=== PATIENT | female | born 1995 | race Caucasian/White ===

== ENCOUNTER 2017-07-03 08:51 | Inpatient (IN) | payer BC, OTHER ==
[2017-07-06] MEDS ORDERED: METHYLERGONOVINE 0.2 MG/ML 1 ML AMP IM PRN (07:17)
[2017-07-06] MEDS ORDERED: TERBUTALINE 1 MG/ML VIAL SQ PRN (07:17)
[2017-07-06] MEDS ORDERED: OXYTOCIN 10 UNIT/ML 1 ML VIAL IM PRN (07:17)
[2017-07-06] MEDS ORDERED: LIDOCAINE 1% (PF) 10 MG/ML (30 ML SDV) SQ PRN (07:17)
[2017-07-06] MEDS ORDERED: CARBOPROST TROMETHAMINE 250 MCG/ML 1 ML AMP IM PRN (07:17)
[2017-07-06 07:39] LABS: Basophils % (A) 0 %; Eosinophils # (A) 0.1 k/uL (0-0.7); Eosinophils % (A) 1 %; HCT 34.7 % (34.0-46.0); HDW 3.06; HGB 11.1 gm/dL (11.4-16.0); Luc # (Auto) 0.32; Luc % (Auto) 3; Lymphocytes # (A) 2.3 k/uL (1.0-4.8); Lymphocytes % (A) 20 %; MCH 27.4 pg (25.0-35.0); MCHC 32.1 g/dL (31.0-37.0); MCV 85.3 fL (80.0-100.0); Mean Platelet Volume 7.9; Monocytes # (A) 0.8 k/uL (0-1.0); Monocytes % (A) 7 %; Neutrophils # (A) 7.8 k/uL (1.3-7.7); Neutrophils % (A) 69 %; RBC 4.07 m/uL (3.80-5.40); RDW 13.5 % (11.5-15.5); WBC 11.3 k/uL (4.0-11.0); WBC (Perox) 11.13
[2017-07-06] MEDS ORDERED: CITRIC ACID-SODIUM CITRATE 15 ML CUP PO ONE (07:40)
[2017-07-06] MEDS ORDERED: ceFAZolin IN SWFI 2 GM/20 ML SYRINGE IVP ONE (07:40)
[2017-07-06] MEDS: LACTATED RINGERS 1,000 ML IV SCH ×5 (07:58→21:46)
[2017-07-06] MEDS: OXYTOCIN 20 UNITS/1000 ML NS 1,000 ML IV SCH (07:59)
[2017-07-06 08:28] VITALS: BMI 29.5
[2017-07-06] MEDS ORDERED: OXYTOCIN 10 UNIT/ML 1 ML VIAL ONE (10:05)
[2017-07-06] MEDS ORDERED: LACTATED RINGERS 1,000 ML BAG IV ONE (10:05)
[2017-07-06] MEDS ORDERED: NALBUPHINE 10 MG/ML AMPUL ONE (10:05)
[2017-07-06] MEDS ORDERED: ePHEDrine SULFATE/0.9% NACL/PF 50 MG/5 ML SYRINGE IV ONE (10:05)
[2017-07-06] MEDS ORDERED: MORPHINE SULFATE (PF) 0.3 MG/0.3 ML SYR ONE (10:05)
[2017-07-06] MEDS ORDERED: ONDANSETRON 4 MG/2 ML VIAL ONE (10:05)
[2017-07-06] MEDS ORDERED: LABETALOL 5 MG/ML VIAL MDV ONE (10:05)
[2017-07-06] MEDS ORDERED: KETOROLAC 30 MG/ML 1 ML VIAL ONE (10:05)
--- NOTE | 2017-07-06 10:11 | P.HPOB ---
History of Present Illness H&P Date: 07/06/17 Chief Complaint: 41+ weeks intrauterine , induction The patient is a 22-year-old 1 para 0 admitted at 40-4/7 weeks by good dating parameters. She is admitted for postdates induction of labor with all signs reassuring. Her has been uncomplicated and group B strep status is negative. On labor and delivery, she had not had Pitocin augmentation started yet will but was to undergo artificial rupture of membranes. During the process of rupture of membranes of some concern for presentation and subsequent bedside ultrasound performed by myself demonstrated breech presentation. As result the plan for induction was abandoned in favor of primary low-transverse section. Obstetrical history: 1 para 0 with current statistics listed in history present illness. EDC of 07/03/2017 was established by last menstrual period and confirmed by 20 week ultrasound. Laboratory workup done traits of blood type of A+ with a negative antibody screen. Rubella status is immune. The remainder of laboratory workup was within normal limits. One hour Glucola was normal and group B strep status is negative. Gynecologic history: Unremarkable with no history of any infections to include STDs. Review of Systems View of systems is confined to history of present illness. Past Medical History Past Medical History: No Reported History History of Any Multi-Drug Resistant Organisms: None Reported Past Surgical History: No Surgical Hx Reported Past Anesthesia/Blood Transfusion Reactions: No Reported Reaction Past Psychological History: Anxiety, Depression Smoking Status: Never smoker Past Alcohol Use History: None Reported Past Drug Use History: None Reported - Past Family History Mother Family Medical History: No Reported History Medications and Allergies Home Medications Medication Instructions Recorded Confirmed Type Pnv No.95/Ferrous Fum/Folic AC 1 tab PO DAILY 05/22/17 07/06/17 History [ Multivitamin Tablet] Allergies Allergy/AdvReac Type Severity Reaction Status Date / Time No Known Allergies Allergy Verified 05/22/17 18:36 Exam - Vital Signs Vital signs: Vital Signs Temp Pulse Resp BP Pulse Ox 07/06/17 07:16 97.5 F L 107 H 18 138/89 99 Intake and Output 07/05/17 07/06/17 07/06/17 22:59 06:59 14:59 Other: Weight 75.75 kg Patient Weight 07/07/17 06:59 Weight 75.75 kg In general, this is a well-developed, well-nourished white female in no acute distress. Her heart has a regular rhythm and rate without murmur. Her lungs are clear to station not in all maria. Her abdomen is gravid, nondistended, has normal active bowel sounds, is soft, nontender, and without any palpable masses aside from uterine fundus. Her extremities without any cyanosis, clubbing, or significant edema and are nontender to palpation bilaterally. Digital cervical exam in addition interested surgery approximate 37 m dilated, 70% effaced, with the breech in presentation at -2 station. Bedside ultrasound confirms breech presentation. Results Result Diagrams: 07/06/17 07:20 Abnormal Lab Results - Last 24 Hours (Table) 07/06/17 Range/Units 07:20 WBC 11.3 H (4.0-11.0) k/uL Hgb 11.1 L (11.4-16.0) gm/dL Neutrophils # 7.8 H (1.3-7.7) k/uL Assessment and Plan (1) Post-dates Current Visit: Yes Status: Acute Code(s): O48.0 - POST-TERM SNOMED Code(s): 00696915 (2) Breech presentation Current Visit: Yes Status: Acute Code(s): O32.1XX0 - MATERNAL CARE FOR BREECH PRESENTATION, UNSP SNOMED Code(s): 1595522 Plan: The patient had initially been admitted for Pitocin induction. At the time of digital cervical examination became apparent that the she was likely breech presentation which was confirmed by bedside ultrasound. As result, the plan for induction was abandoned in favor of primary low-transverse section. The risks and, occasions were discussed with the patient and she has understood and agreed to proceed.
[2017-07-06] MEDS ORDERED: IBUPROFEN 600 MG TAB PO PRN (10:50)
[2017-07-06] MEDS ORDERED: diphenhydrAMINE 25 MG CAP PO PRN (10:50)
[2017-07-06] MEDS ORDERED: LANOLIN CREAM 5 GM TUBE TOPICAL PRN (10:50)
[2017-07-06] MEDS ORDERED: ONDANSETRON 4 MG/2 ML VIAL IVP PRN (10:50)
[2017-07-06] MEDS ORDERED: METOCLOPRAMIDE 5 MG/ML 2 ML VIAL IVP PRN (10:50)
[2017-07-06] MEDS ORDERED: ACETAMINOPHEN TAB 325 MG TAB PO PRN (10:50)
[2017-07-06] MEDS ORDERED: Acetaminophen-Codeine 300-30mg TAB PO PRN ×2 (10:50)
[2017-07-06] MEDS ORDERED: diphenhydrAMINE 50 MG/ML 1 ML VIAL IVP PRN ×2 (10:50)
[2017-07-06] MEDS ORDERED: diphenhydrAMINE 50 MG CAP PO PRN (10:50)
[2017-07-06] MEDS ORDERED: NALOXONE 0.4 MG/ML 1 ML VIAL IV PRN (10:50)
[2017-07-06] MEDS ORDERED: ZOLPIDEM 5 MG TAB PO PRN (10:50)
--- NOTE | 2017-07-06 10:58 | P.OP ---
Date of Procedure: 07/06/17 Preoperative Diagnosis: #1. 40-4/7 weeks intrauterine #2. Breech presentation Postoperative Diagnosis: Same Procedure(s) Performed: #1. Primary low-transverse section Anesthesia: spinal Surgeon: Joshua Smith Aperture Mask Etcher #1: Teri Champagne Estimated Blood Loss (ml): 600 IV fluids (ml): 1,200 Urine output (ml): 800 Pathology: other (Placenta) Condition: stable Disposition: floor Operative Findings: Preoperatively, at the time of artificial rupture of membranes, there was concern for breech presentation as opposed to vertex. Bedside ultrasound confirmed breech presentation. As result, the patient was taken to the operating room where she was delivered of a viable 8 lbs. 5 oz. baby boy with Apgars of 9 at 1 minute and 9 at 5 minutes delivered in the jewel breech presentation with standard breech maneuvers. The placenta was delivered manually, intact, and grossly normal with a grossly normal three-vessel cord. The uterus, tubes, and ovaries were normal to inspection. Description of Procedure: The patient was prepped and draped in usual fashion after spinal anesthesia was administered by the anesthesiologist. A Pfannenstiel incision was made and extended in the abdominal cavity without difficulty. The bladder peritoneum was noted to be distal to the incision site was left intact. A 2 cm incision was made in the transverse plane of the lower uterine segment to enter the uterus at which time further clear fluid was noted. Incision was extended in both directions using the bandage scissors. The breech was encountered within the pelvis and was delivered up and through the incision. The legs were delivered with standard breech maneuvers as were the arms. The head and then the delivered without difficulty. The nose and mouth were thoroughly suctioned on the field while the cord was doubly clamped and cut, and the was passed for resuscitative measures with weight and Apgars as noted above. In the process of clamping is piece of the cord, the cord was lacerated and the blood lost. As result no separate segment of cord was set aside. The placenta was delivered manually and intact as noted above. The uterus was exteriorized and the interior cavity of the uterus swept of any remaining placental or membranous fragments. The margins of the incision were grasped with Roberts clamps and the incision closed in 2 layers. First layer was a running locking stitch of 0 chromic catgut from margin to margin followed by a running imbricating layer of 0 chromic catgut from margin to margin. Hemostasis appeared to be excellent. The posterior cul-de-sac was suctioned with a guard and the uterus and ovaries were normal as noted above. The uterus was replaced within the abdominal cavity and the gutters swept of any remaining blood, fluid, or clot. The incision was reexamined and noted to be hemostatic. The parietal peritoneum was loosely reapproximated and layer of muscles examined and made hemostatic with the Bovie. The fascia was closed with 2 running stitches of 0 Vicryl proceeding from the lateral margins to the midpoint. Subcutaneous tissues were irrigated, made hemostatic with the Bovie, and reapproximated with a running stitch of 30 plain catgut. The skin was reapproximated with a running subcuticular stitch of 4-0 Monocryl followed by half-inch Steri-Strips placed with Mastisol. Estimated blood loss for the case was approximately 600 mL. There were no complications. All sponge, instrument , and needle counts were correct. Both mother and infant are resting comfortably in recovery.
[2017-07-06] MEDS ORDERED: OXYTOCIN 20 UNITS/1000 ML NS 1,000 ML IV SCH (11:00)
[2017-07-06] MEDS: SENNOSIDES-DOCUSATE SODIUM 1 EACH TAB PO SCH (19:54)
[2017-07-06] MEDS: KETOROLAC 30 MG/ML 1 ML VIAL IVP PRN (19:54)
[2017-07-07] MEDS: LACTATED RINGERS 1,000 ML IV SCH (05:01)
[2017-07-07] MEDS: OXYTOCIN 20 UNITS/1000 ML NS 1,000 ML IV SCH (05:03)
[2017-07-07 05:37] LABS: Basophils % (A) 0 %; CH 26.9; CHCM 31.6; Eosinophils # (A) 0.1 k/uL (0-0.7); Eosinophils % (A) 1 %; HCT 25.2 % (34.0-46.0); HDW 2.74; Hypochromasia Slight; Luc % (Auto) 1; Lymphocytes # (A) 1.7 k/uL (1.0-4.8); Lymphocytes % (A) 15 %; MCH 27.8 pg (25.0-35.0); MCHC 32.4 g/dL (31.0-37.0); MCV 85.6 fL (80.0-100.0); Mean Platelet Volume 8.9; Monocytes # (A) 0.8 k/uL (0-1.0); Monocytes % (A) 7 %; Neutrophils # (A) 8.6 k/uL (1.3-7.7); Neutrophils % (A) 76 %; RBC 2.94 m/uL (3.80-5.40); RDW 14.5 % (11.5-15.5); WBC 11.3 k/uL (4.0-11.0); WBC (Perox) 10.92
[2017-07-07 05:56] LABS: HGB 8.2 gm/dL (11.4-16.0)
--- NOTE | 2017-07-07 08:31 | P.PN ---
Progress Note - Text Date: 07/07/2017 Time:[ 0703] The patient is status post section Vital signs stable VAS:0-10 Patient has no complaints of pain. The patient incurred some minimal itching yesterday, this itching is now subsiding. Pain meds to be managed by service.
--- NOTE | 2017-07-07 08:43 | P.PNOBGPC ---
Subjective - Subjective Patient reports: Reports appetite normal, Reports voiding normally, Reports pain well controlled, Reports ambulating normally : doing well Objective - Vital Signs Latest vital signs: Vital Signs Temp Pulse Resp BP Pulse Ox 07/07/17 05:00 97.7 F 102 H 16 120/66 07/07/17 00:00 98.7 F 89 18 120/57 07/06/17 20:00 98.8 F 102 H 16 118/67 07/06/17 16:00 98.1 F 97 20 106/69 07/06/17 12:45 97.1 F L 100 18 113/76 96 07/06/17 12:15 97.4 F L 94 18 119/66 97 07/06/17 11:50 97.7 F 102 H 18 113/57 97 07/06/17 11:35 98 07/06/17 11:20 96.5 F L 91 18 109/66 97 07/06/17 11:05 96.6 F L 81 18 101/59 97 07/06/17 10:50 96.9 F L 86 18 102/55 96 Intake and Output 07/06/17 07/07/17 07/07/17 22:59 06:59 14:59 Intake Total 420 Output Total 400 1200 Balance -400 -780 Intake: Oral 420 Output: Urine 400 1200 Other: # Voids 2 - Exam Lungs: bilateral: normal Chest: Normal S1, Normal S2 Extremities: Present: normal Abdomen: Present: normal appearance, soft. Absent: distention, tenderness Incision: Present: normal, dry, intact Uterus: Present: normal, firm (The uterine fundus as tonic and nontender just below the umbilicus.) - Labs Labs: Abnormal Lab Results - Last 24 Hours (Table) 07/07/17 Range/Units 05:26 WBC 11.3 H (4.0-11.0) k/uL RBC 2.94 L (3.80-5.40) m/uL Hgb 8.2 L D (11.4-16.0) gm/dL Hct 25.2 L (34.0-46.0) % Plt Count 149 L (150-450) k/uL Neutrophils # 8.6 H (1.3-7.7) k/uL Assessment and Plan (1) Post-dates Current Visit: Yes Status: Acute Code(s): O48.0 - POST-TERM SNOMED Code(s): 84666445 (2) Breech presentation Current Visit: Yes Status: Acute Code(s): O32.1XX0 - MATERNAL CARE FOR BREECH PRESENTATION, UNSP SNOMED Code(s): 0972351 (3) S/P section Current Visit: Yes Status: Acute Code(s): Z98.891 - HISTORY OF UTERINE SCAR FROM PREVIOUS SURGERY SNOMED Code(s): 513179183 Plan: Continue routine postoperative care. She did have a relatively large drop in hemoglobin which is likely hydration all as well as intraoperative blood loss. She has no signs or symptoms of orthostasis and is otherwise stable from a vital signs perspective as well as symptomatology. She will continue to have close surveillance and I would anticipate discharge home tomorrow pending no complications. I have encouraged her to continue to ambulate in the halls at least 4 times daily if not more.
[2017-07-07] MEDS: SENNOSIDES-DOCUSATE SODIUM 1 EACH TAB PO SCH ×2 (08:57→20:15)
[2017-07-07] MEDS: KETOROLAC 30 MG/ML 1 ML VIAL IVP PRN (16:36)
[2017-07-08] MEDS: SENNOSIDES-DOCUSATE SODIUM 1 EACH TAB PO SCH (07:38)
[2017-07-08] MEDS: LACTATED RINGERS 1,000 ML IV SCH (07:51)
[2017-07-08] MEDS: OXYTOCIN 20 UNITS/1000 ML NS 1,000 ML IV SCH (07:51)
[2017-07-08 07:59] VITALS: TEMP 98.3
--- NOTE | 2017-07-08 08:42 | P.DS ---
Providers Date of admission: 07/06/17 06:30 Expected date of discharge: 07/08/17 Attending physician: Joshua Smith Primary care physician: Stated None - Discharge Diagnosis(es) (1) Post-dates Current Visit: Yes Status: Acute (2) Breech presentation Current Visit: Yes Status: Acute (3) S/P section Current Visit: Yes Status: Acute Hospital Course: The patient is a 22-year-old 1 para 0 admitted at 40-4/7 weeks by good dating parameters perches admitted for induction of labor but found at the time of artificial rupture of membranes to have the baby in breech presentation. This was confirmed by bedside ultrasound. As result, the plan for induction was abandoned and she was taken for primary low-transverse section. She was delivered of a viable 8 lbs. 5 oz. baby boy with Apgars of 9 at 1 minute and 9 at 5 minutes delivered in the jewel breech presentation. Her postoperative course was unremarkable vital signs remaining stable and her temperature was afebrile throughout. She was deemed stable for discharge by and postoperative day #2 and was discharged to follow-up in the office in 2 weeks for an incision check and 6 weeks routinely. Discharge instructions included calling for any significantly increased bleeding or foul- smelling lochia, significantly increased fever or abdominal pain, perineal complaints, breast complaints, incisional complaints, or anything else that concerned her. She was additionally instructed to have nothing in the vagina to include intercourse for at least 6 weeks time. She understood her instructions and agrees to follow up as noted above. Discharge medications included continued vitamins as she has opted to breast-feed. She otherwise was given a prescription for Tylenol 3, 1-2 by mouth every 6 hours when necessary pain, #30 dispensed with no refills. She will additionally use xllx-qjw-iytexac analgesic pain medications and any other home medications that she chooses. Maternal blood type is A+ and rubella status is immune. Discharge hemoglobin and hematocrit were 8.2 and 25.2 respectively. As result, she was instructed to take iron sulfate once daily for at least a month in order to rebuild her blood count. Procedures: #1. Primary low-transverse section Patient Condition at Discharge: Stable Plan - Discharge Summary New Discharge Prescriptions: No Action Pnv No.95/Ferrous Fum/Folic AC [ Multivitamin Tablet] 1 tab PO DAILY Discharge Medication List Pnv No.95/Ferrous Fum/Folic AC [ Multivitamin Tablet] 1 tab PO DAILY 01/31 [History] Follow up Appointment(s)/Referral(s): Joshua Smith MD [STAFF PHYSICIAN] - 2 Weeks Discharge Disposition: HOME SELF-CARE
[2017-07-08 12:27] VITALS: BP 125/79; PULSE 111; RESP 17
== END 2017-07-08 12:35 | disposition home or self-care (01) | DRG 766 ==
LOC: 4FBP 07-06 06:30
PROVIDERS: ADMIT Obstetrics & Gynecology; ATTEND Obstetrics & Gynecology
PROC: 10907ZC Drainage of Amniotic Fluid, Therapeutic from Products of Conception, Via Natural or Artificial Opening (ICD-10-PCS; principal; 2017-07-06 06:30)
PROC: 10D00Z1 Extraction of Products of Conception, Low, Open Approach (ICD-10-PCS; principal; 2017-07-06 06:30)
DX: O32.1XX0 Maternal care for breech presentation, not applicable or unspecified (principal); O48.0 Post-term pregnancy; Z37.0 Single live birth; Z3A.40 40 weeks gestation of pregnancy
CPT/HCPCS: 85025; 86850; 86900; 86901; 88307

== ENCOUNTER 2021-04-14 03:14 | Inpatient (IN) | payer OTHER ==
[2021-04-14] MEDS ORDERED: TERBUTALINE 1 MG/ML VIAL SQ PRN (03:40)
[2021-04-14] MEDS ORDERED: LIDOCAINE 0.5% (PF) 5 MG/ML (50 ML SDV) SQ PRN (03:40)
[2021-04-14] MEDS ORDERED: OXYTOCIN 10 UNIT/ML 1 ML VIAL IM PRN (03:40)
[2021-04-14] MEDS ORDERED: METHYLERGONOVINE 0.2 MG/ML 1 ML AMP IM PRN (03:40)
[2021-04-14] MEDS ORDERED: CARBOPROST TROMETHAMINE 250 MCG/ML 1 ML AMP IM PRN (03:40)
[2021-04-14] MEDS ORDERED: OXYTOCIN 30 UNITS/500 ML NS 30 UNIT in SALINE 1 500ML.BAG IV SCH ×2 (03:45→06:00)
[2021-04-14 03:51] LABS: Basophils % (A) 0 %; Eosinophils # (A) 0.1 k/uL (0-0.7); Eosinophils % (A) 1 %; HCT 33.3 % (34.0-46.0); HGB 11.2 gm/dL (11.4-16.0); Lymphocytes # (A) 2.3 k/uL (1.0-4.8); Lymphocytes % (A) 18 %; MCHC 33.5 g/dL (31.0-37.0); MCV 86.5 fL (80.0-100.0); Mean Platelet Volume 8.3; Monocytes # (A) 0.7 k/uL (0-1.0); Monocytes % (A) 5 %; Neutrophils # (A) 9.5 k/uL (1.3-7.7); Neutrophils % (A) 74 %; Platelet Count 237 k/uL (150-450); Poikilocytosis Slight; RBC 3.85 m/uL (3.80-5.40); WBC 12.8 k/uL (3.8-10.6)
[2021-04-14] MEDS: LACTATED RINGERS 1,000 ML IV SCH ×2 (04:00→12:06)
[2021-04-14] MEDS ORDERED: ZOLPIDEM 5 MG TAB PO PRN (05:49)
[2021-04-14] MEDS ORDERED: LANOLIN CREAM 5 GM TUBE TOPICAL PRN (05:49)
[2021-04-14] MEDS ORDERED: diphenhydrAMINE 50 MG CAP PO PRN (05:49)
[2021-04-14] MEDS ORDERED: diphenhydrAMINE 25 MG CAP PO PRN (05:49)
[2021-04-14] MEDS ORDERED: HYDROCORTISONE 2.5% RECTAL CREAM 30 GM TUBE RECTAL PRN (05:49)
[2021-04-14] MEDS ORDERED: diphenhydrAMINE 50 MG/ML 1 ML VIAL IVP PRN ×2 (05:49)
[2021-04-14] MEDS ORDERED: ACETAMINOPHEN TAB 325 MG TAB PO PRN (05:49)
[2021-04-14] MEDS ORDERED: SIMETHICONE 80 MG CHEWABLE PO PRN (05:49)
[2021-04-14] MEDS ORDERED: BENZOCAINE/MENTHOL SPRAY 1 GM/SPRAY AEROSOL TOPICAL PRN (05:49)
--- NOTE | 2021-04-14 05:49 | P.PROBDLV ---
Vaginal Delivery Note - . Vaginal Delivery Note: This 25-year-old resented to labor and delivery in active labor with complaints of spontaneous rupture of membranes. Patient was admitted to labor and delivery noted to be 8 cm. Patient is a history of a prior secondary to breech and desired vaginal delivery after . Patient progressed to complete began pushing and had a vaginal after , viable male at 519, weight of 8 lbs. 6.7 oz. Apgars of 8 and 9 at one and 5 minutes respectively. bradycardia in the 80's was noted with therefore a midline episiotomy was performed. Umbilical cord was doubly clamped and cut and the was handed to the maternal abdomen, spontaneous cry was noted at . On inspection the patient's vaginal vault a midline second degree episiotomy was appreciated. The placenta was then delivered spontaneously intact with a three- vessel cord. The midline episiotomy was repaired in the usual fashion with 3-0 Rapide. After repair hemostasis was appreciated. On section the patient's vaginal vault a left lateral sidewall laceration was appreciated and repaired with a [id number] suture of 3-0 Rapide. The uterus is noted be firm and below the umbilicus after delivery. Estimated blood loss 300 mL Patient and tolerated delivery well and are resting comfortably
--- NOTE | 2021-04-14 05:50 | P.HPOB ---
History of Present Illness H&P Date: 04/14/21 Chief Complaint: IUP at 39 and 1/7 weeks, spontaneous rupture of membranes, active labor This is a 25 yo at 39 1/7 weeks, EDC based on last menstrual period and consistent with 19 week ultrasound. Patient has received routine care with complication. Patient is a prior history of for breech presentation, desires vaginal delivery if vertex. Patient did have an ultrasound performed at 36 weeks, estimated weight 7 lbs. 11 oz., 93rd percentile. In addition patient has known circumvallate placenta for which she has been receiving weekly nonstress tests and serial growth ultrasounds. Patient states she had rupture of membranes, clear fluid was noted. Patient notes regular painful contractions. On bloodwork this patient is a blood type of A+, rubella status immune, RPR is nonreactive, B surface antigen negative, HIV negative, group beta strep is negative. Review of Systems Constitutional: Denies chills, Denies fatigue, Denies fever Ears, nose, mouth and throat: Denies headache Cardiovascular: Reports leg edema Respiratory: Denies dyspnea Gastrointestinal: Denies constipation, Denies diarrhea, Denies nausea, Denies vomiting Genitourinary: Reports Past Medical History Past Medical History: No Reported History History of Any Multi-Drug Resistant Organisms: None Reported Past Surgical History: No Surgical Hx Reported Past Anesthesia/Blood Transfusion Reactions: No Reported Reaction Past Psychological History: Anxiety, Depression Smoking Status: Never smoker Past Alcohol Use History: None Reported Past Drug Use History: None Reported - Past Family History Mother Family Medical History: No Reported History Medications and Allergies Home Medications Medication Instructions Recorded Confirmed Type Pnv No.95/Ferrous Fum/Folic AC 1 tab PO DAILY 05/22/17 04/14/21 History [ Multivitamin Tablet] Allergies Allergy/AdvReac Type Severity Reaction Status Date / Time No Known Allergies Allergy Verified 04/14/21 03:23 Exam Osteopathic Statement: *. No significant issues noted on an osteopathic structural exam other than those noted in the History and Physical/Consult. Vital Signs Temp Pulse Resp BP Pulse Ox 04/14/21 03:40 96.9 F L 114 H 18 132/90 98 Intake and Output 04/13/21 04/13/21 04/14/21 14:59 22:59 06:59 Other: Weight 73.936 kg Targeted physical exam is performed in this date and trimmer press clippings a well-nourished well-developed female in obvious labor, breathing is noted to be nonlabored, heart has a regular rhythm, abdomen is gravid, on cervical exam she is 8/100/-1. heart tones are noted to be category 1, she is jr every 1-2 minutes. Results Result Diagrams: 04/14/21 03:42 Abnormal Lab Results - Last 24 Hours (Table) 04/14/21 Range/Units 03:42 WBC 12.8 H (3.8-10.6) k/uL Hgb 11.2 L (11.4-16.0) gm/dL Hct 33.3 L (34.0-46.0) % Neutrophils # 9.5 H (1.3-7.7) k/uL Assessment and Plan (1) Term Current Visit: Yes Status: Acute Code(s): Z34.90 - ENCNTR FOR SUPRVSN OF NORMAL , UNSP, UNSP TRIMESTER SNOMED Code(s): 42094882 (2) SROM (spontaneous rupture of membranes) Current Visit: Yes Status: Acute Code(s): HLS8021 - SNOMED Code(s): 180464463 (3) Active labor Current Visit: Yes Status: Acute Code(s): GQH3149 - SNOMED Code(s): 947945187 (4) H/O section Current Visit: Yes Status: Acute Code(s): Z98.891 - HISTORY OF UTERINE SCAR FROM PREVIOUS SURGERY SNOMED Code(s): 715602814 (5) Desires (vaginal after ) trial Current Visit: Yes Status: Acute Code(s): O34.219 - MATERNAL CARE FOR UNSP TYPE SCAR FROM PREVIOUS DEL SNOMED Code(s): 684024537 Plan: 25-year-old at 39 and one sevenths weeks that presents in active labor. Patient is admitted to labor and delivery. Patient desires vaginal delivery after . Will monitor closely anticipate spontaneous vaginal delivery.
[2021-04-14] MEDS: IBUPROFEN 600 MG TAB PO PRN ×3 (06:11→21:57)
[2021-04-14] MEDS: PRENATAL VIT-IRON-FOLIC ACID 1 EACH CAP PO SCH (12:00)
[2021-04-14] MEDS: SENNOSIDES-DOCUSATE SODIUM 1 EACH TAB PO SCH ×2 (12:01→19:55)
[2021-04-15 05:27] LABS: Basophils % (A) 0 %; Eosinophils # (A) 0.1 k/uL (0-0.7); Eosinophils % (A) 1 %; Hypochromasia Slight; Lymphocytes # (A) 2.1 k/uL (1.0-4.8); Lymphocytes % (A) 18 %; MCH 29.7 pg (25.0-35.0); MCHC 33.4 g/dL (31.0-37.0); MCV 88.7 fL (80.0-100.0); Mean Platelet Volume 8.6; Monocytes # (A) 0.6 k/uL (0-1.0); Monocytes % (A) 5 %; Neutrophils # (A) 8.6 k/uL (1.3-7.7); Neutrophils % (A) 75 %; Platelet Count 205 k/uL (150-450); Poikilocytosis Slight; RDW 14.2 % (11.5-15.5); WBC 11.5 k/uL (3.8-10.6)
[2021-04-15 08:11] VITALS: RESP 16
[2021-04-15] MEDS: SENNOSIDES-DOCUSATE SODIUM 1 EACH TAB PO SCH (08:23)
[2021-04-15] MEDS: PRENATAL VIT-IRON-FOLIC ACID 1 EACH CAP PO SCH (10:15)
[2021-04-15] MEDS: IBUPROFEN 600 MG TAB PO PRN (10:15)
[2021-04-15 11:50] VITALS: BP 112/73; PULSE 102; TEMP 98
--- NOTE | 2021-04-15 15:15 | P.DS ---
Providers Date of admission: 04/14/21 03:28 Expected date of discharge: 04/15/21 Attending physician: Joshua Smith Primary care physician: Stated None - Discharge Diagnosis(es) (1) Vaginal after section Status: Acute Hospital Course: The patient is a 25-year-old 2 para 1001 admitted at 39 and one sevenths weeks by good dating parameters perches admitted in active labor with a history of previous section for breech. She has requested vaginal trial of labor. Her was uncomplicated though she was found with the suspected macrosomic infant greater than the 93rd percentile approximate 36 weeks. She additionally was found to have a circumvallate placenta and has had reassuring testing throughout the . On labor and delivery, she presented at approximately 8 cm of dilation with ruptured membranes. She progressed fairly quickly to complete and then pushed to a normal spontaneous vaginal delivery of a viable 8 lbs. 7 oz. baby boy with Apgars of 8 at 1 minute and 9 at 5 minutes. Her course was unremarkable with vital signs remaining stable and her temperature was afebrile throughout. She was deemed stable for discharge on day #1 was discharged home to follow-up in the office in 6 weeks routinely. Discharge instructions included calling for any significantly increased bleeding or foul-smelling lochia, significantly increased fever or abdominal pain, perineal complaints, breast complaints, or anything else that concerned her. She was additionally instructed to have nothing in the vagina for at least 6 weeks time to include intercourse. She understood her instructions and agrees to follow up as noted above. Discharge medications included cprw-tkg-ylewcso analgesic pain medications as well as continued vitamins as she has opted to breast-feed. Maternal blood type is A+ and rubella status is immune. Procedures: #1. Normal spontaneous vaginal delivery, successful #2. Repair of perineal laceration Patient Condition at Discharge: Stable Plan - Discharge Summary Discharge Rx Participant: No New Discharge Prescriptions: No Action Pnv No.95/Ferrous Fum/Folic AC [ Multivitamin Tablet] 1 tab PO DAILY Discharge Medication List Pnv No.95/Ferrous Fum/Folic AC [ Multivitamin Tablet] 1 tab PO DAILY 05/22/17 [History] Follow up Appointment(s)/Referral(s): Joshua Smith MD [STAFF PHYSICIAN] - 6 Weeks Discharge Disposition: HOME SELF-CARE
== END 2021-04-15 14:05 | disposition home or self-care (01) | DRG 807 ==
LOC: FBPOP 03:14 → 4FBP 03:28
PROVIDERS: ADMIT Obstetrics & Gynecology Obstetrics; ATTEND Obstetrics & Gynecology
PROC: 10E0XZZ Delivery of Products of Conception, External Approach (ICD-10-PCS; principal; 2021-04-14)
PROC: 0W8NXZZ Division of Female Perineum, External Approach (ICD-10-PCS; 2021-04-14)
PROC: 4A0HX4Z Measurement of Products of Conception, Cardiac Electrical Activity, External Approach (ICD-10-PCS; 2021-04-14)
PROC: 0UQGXZZ Repair Vagina, External Approach (ICD-10-PCS; 2021-04-14)
DX: O34.219 Maternal care for unspecified type scar from previous cesarean delivery (principal); Z37.0 Single live birth; O36.63X0 Maternal care for excessive fetal growth, third trimester, not applicable or unspecified; O71.89 Other specified obstetric trauma; O76 Abnormality in fetal heart rate and rhythm complicating labor and delivery; O99.343 Other mental disorders complicating pregnancy, third trimester; F32.9 Major depressive disorder, single episode, unspecified; F41.9 Anxiety disorder, unspecified; Z3A.39 39 weeks gestation of pregnancy; O43.113 Circumvallate placenta, third trimester
CPT/HCPCS: 59025; 85025; 86850; 86900; 86901; 99213

== ENCOUNTER 2024-03-06 21:54 | Outpatient (CLI) | payer OTHER ==
[2024-03-06 23:32] VITALS: BP 135/89; RESP 18; TEMP 97.3
--- NOTE | 2024-03-10 08:59 | P.MSEPDOC ---
Presenting Problems - Arrival Data Date of Arrival on Unit: 03/06/24 Time of Arrival on Unit: 21:54 Mode of Transport: Wheelchair - Complaint OB-Reason for Admission/Chief Complaint: Vaginal Bleeding Comment: Presents with c/o vaginal bleeding at 2109 and non painful cx but notices the tightening. Pt has no pain. RN visualized picure of small amount of bright red blood on tissue and a small blood clot, as well as a half full panty liner pt wore into triage. Medical History - Information : 3 Para: 2 Term: 2 : 0 Abortions: Spontaneous or Elective: 0 Number of Living Children: 2 - Gestational Age Gestational Age by YESICA (wks/days): 37 Weeks and 5 Days Review of Systems - Review of Systems Constitutional: No problems Breast: No problems ENT: No problems Cardiovascular: No problems Respiratory: No problems Gastrointestinal: No problems Genitourinary: No problems Musculoskeletal: No problems Neurological: No problems Skin: No problems Vital Signs - Temperature Temperature: 97.3 F Temperature Source: Temporal Artery Scan - Respirations Respiratory Rate: 18 Oxygen Delivery Method: Room Air - Blood Pressure Right Arm Blood Pressure: 135/89 Blood Pressure Mean: 104 Blood Pressure Source: Automatic Cuff Medical Screen Scoring - Cervical Exam Dilation (cm): 3 Effacement (%): 90 Station: -2 Membranes: Intact - Uterine Contractions Frequency From (mins): 3 Frequency To (mins): 4 Duration From (seconds): 50 Duration To (seconds): 70 Intensity: Mild Resting: Soft to palpation - Assessment - Baby A Baseline FHR: 130 Heart Rate - NICHD Category: Category I (Normal) NST: Reactive Physician Notification - Physician Notified Physician Notified Date: 03/06/24 Physician Notified Time: 22:07 Physician: Camila Eason New Order Received: Yes - Notification Comment Comment: Dr. eason in department, report given. Pt of Dr. Alvarado, 37 and 5. Presents with c/o vaginal bleeding at 2109 and non painful cx but notices the tightening. Pt has no pain. RN visualized picure of small amount of bright red blood on tissue and a small blood clot, as well as a half full panty liner pt wore into triage. MD to bedside performing assessment. Order recieved to recheck cervix in 1 hour. Repeat SVE is the same, order to d/c pt home Maternal Triage Index - Maternal Triage Index Presenting for scheduled procedure w/no complaint: No - Stat/Priority 1 Stat Priority 1: No - Urgent/Priority 2 Urgent Priority 2: No - Prompt/Priority 3 Prompt Priority 3: Yes Criteria Met for Priority 3: Presents with c/o vaginal bleeding at 2110 and non painful cx but notices the tightening. Pt has no pain. RN visualized picure of small amount of bright red blood on tissue and a small blood clot, as well as a half full panty liner pt wore into triage. MD to bedside performing assessment. MD confirmed to be bloody show upon assessment Disposition - Disposition OB Disposition: Discharge to home Discharge Date: 03/06/24 Discharge Time: 23:19 I agree with the RN Medical Screening Exam: Yes Case reviewed; plan agreed upon as documented in EMR&OBIX.: Yes Diagnosis: FALSE LABOR AT OR AFTER 37 COMPLETED WEEKS OF GESTATION
== END 2024-03-06 23:19 | disposition home or self-care (01) ==
LOC: FBPOP 21:54
PROVIDERS: ATTEND Obstetrics & Gynecology
DX: O46.93 Antepartum hemorrhage, unspecified, third trimester (principal); O47.1 False labor at or after 37 completed weeks of gestation; Z3A.37 37 weeks gestation of pregnancy
CPT/HCPCS: 59025; G0463; 99213